=== PATIENT | male | born 1950 | race Two or more races ===

== ENCOUNTER 2024-11-05 06:30 | Emergency (ER) | payer OTHER ==
[~2024-11-05] VITALS: Ht 167.6 cm; Wt 72.6 kg
[2024-11-05 08:54] LABS: BASO % 0.7 % (0.1-1.2); EOS # 0.65 (0.04-0.54); EOS % 7.9 % (0.7-7.0); LYMPH # 1.00 (1.18-3.74); LYMPH % 12.2 % (19.3-53.1); MEAN PLATELET VOLUME 8.70 fl (9.4-12.4); MONO # 0.80 (0.24-0.82); MONO % 9.8 % (4.7-12.5); NEUT # 5.61 (1.56-6.13); NEUT % 68.5 % (34.0-71.1); RED CELL DISTRIBUTION WIDTH 12.4 % (11.6-14.4)
[2024-11-05 10:04] LABS: COVID-19 AG NEGATIVE (NEGATIVE)
[2024-11-05] MEDS ORDERED: NORFLEX100MG PO (10:12)
== END 2024-11-05 11:39 | disposition home or self-care (01) ==
LOC: ER 06:30
PROVIDERS: General Practice
DX: M79.11 Myalgia of mastication muscle (principal); R51.9 Headache, unspecified; Z20.822 Contact with and (suspected) exposure to COVID-19; I10 Essential (primary) hypertension